=== PATIENT | female | born 1980 | race Caucasian/White ===

== ENCOUNTER 2020-02-24 | Emergency (ER) | payer BC ==
--- NOTE | 2020-02-24 00:38 | EDM.PDOC ---
ED HPI GENERAL MEDICAL PROBLEM - General Chief Complaint: Chest Pain Stated Complaint: CHEST PAIN L ARM NUMBNESS Time Seen by Provider: 02/24/20 00:16 Source of Information: Reports: Patient History Limitations: Reports: No Limitations - History of Present Illness INITIAL COMMENTS - FREE TEXT/NARRATIVE: 39-year-old female attends the ED due to development of a diffuse left-sided chest pressure discomfort with slight radiation into the left upper extremity to the elbow. This awoke her from sleep about an hour prior to coming to the ED. She stood up and walked around and sat for a while and the pressure did not go away. Of note she is appreciated some discomfort along the medial aspect of her left thigh off and on for the last 2 weeks. It has been more prominent over the last 2 to 3 days. Of note she has had a previous DVT in her left lower extremity in 2006 unprovoked. She denies any pleuritic chest pain cough or hemoptysis. She has no known cardiac problems. She has had a total abdominal hysterectomy. O2 sats drift as low as 93% on room air. She has no history of PE ED with her DVT in 2006. Onset: Sudden Onset Date: 02/23/20 Onset Time: 23:00 Duration: Minutes:, Constant Location: Reports: Chest (Scribes it is a very mild left central and precordial chest discomfort or pressure. She relates that) Quality: Reports: Ache ( pain is 1 out of 10.), Pressure Severity: Mild Improves with: Reports: None Worsens with: Reports: None, Other Context: Denies: Activity, Exercise, Lifting, Sick Contact, Trauma, Other Associated Symptoms: Reports: No Other Symptoms (It is not made worse by walking or deep breathing.). Denies: Confusion, Chest Pain, Cough, cough w sputum, Diaphoresis, Fever/Chills, Headaches, Loss of Appetite, Malaise, Nausea/Vomiting, Rash, Seizure, Shortness of Breath, Syncope, Weakness Treatments MRI ASSISTANT: Reports: Other (see below) (None.) Left Chest Pain Score (Numeric/FACES): 2 - Related Data Allergies Allergy/AdvReac Type Severity Reaction Status Date / Time No Known Allergies Allergy Verified 02/24/20 00:14 Home Meds: Home Meds Diclofenac Sodium [Voltaren] 75 mg PO BIDMEALS #16 tab.cr 02/24/20 [Rx] predniSONE [Prednisone] 20 mg PO BID #10 tablet 02/24/20 [Rx] Past Medical History Genitourinary History: Reports: UTI, Recurrent [employer] History: Reports: Neurological History: Reports: Headaches, Chronic Endocrine/Metabolic History: Reports: Other (See Below) Other Endocrine/Metabolic History: SLE Hematologic History: Reports: Other (See Below) (DVT right lower extremity in 2006 for no apparent reason.) Immunologic History: Reports: SLE - Infectious Disease History Infectious Disease History: Reports: Chicken Pox - Past Surgical History Female Surgical History: Reports: Hysterectomy Social & Family History - Tobacco Use Tobacco Use Status *Q: Never Tobacco User - Caffeine Use Caffeine Use: Reports: Coffee - Recreational Drug Use Recreational Drug Use: No - Living Situation & Occupation Living situation: Reports: Occupation: Employed ED ROS GENERAL - Review of Systems Review Of Systems: See Below Constitutional: Denies: Fever, Chills, Malaise, Weakness, Fatigue, Decreased Appetite, Weight Loss HEENT: Reports: No Symptoms Respiratory: Denies: Shortness of Breath, Wheezing, Pleuritic Chest Pain, Cough, Sputum, Hemoptysis, Other Cardiovascular: Reports: Chest Pain (Mild diffuse left-sided chest pressure discomfort this evening. Rates it as a 1 out of 10.). Denies: Blood Pressure Problem, Claudication, Edema, Lightheadedness, Orthopnea Endocrine: Reports: No Symptoms GI/Abdominal: Reports: No Symptoms : Reports: No Symptoms Musculoskeletal: Reports: No Symptoms Skin: Reports: No Symptoms Neurological: Reports: No Symptoms Psychiatric: Reports: No Symptoms Hematologic/Lymphatic: Reports: No Symptoms Immunologic: Reports: No Symptoms ED EXAM, GENERAL - Physical Exam Exam: See Below Exam Limited By: No Limitations General Appearance: Alert, WD/WN, No Apparent Distress, Other (Temperature is 36.1 with a heart rate of 62 and sinus respiratory is 15 BP 135/83 with a pulse ox measuring 93 to 95% on room air.) Eye Exam: Bilateral Eye: Normal Inspection, PERRL Throat/Mouth: Normal Inspection, Normal Lips, Normal Oropharynx Head: Atraumatic, Normocephalic Neck: Normal Inspection, Supple, Non-Tender, Full Range of Motion. No: Carotid Bruit, Lymphadenopathy (R), Thyromegaly Respiratory/Chest: No Respiratory Distress, Lungs Clear, Normal Breath Sounds, No Accessory Muscle Use, Other (.) Cardiovascular: Normal Peripheral Pulses, Regular Rate, Rhythm, No Edema, No Gallop, No Murmur ( He has no pain on palpation of the right ribs in the midclavicular line), No Rub Peripheral Pulses: 3+: Carotid (L), Carotid (R), Posterior Tibial (L), Posterior Tibial (R), Dorsalis Pedis (L), Dorsalis Pedis (R) GI/Abdominal: Normal Bowel Sounds, Soft, Non-Tender, No Organomegaly, No Mass, Pelvis Stable, Other (No healed surgical scar.) Back Exam: Normal Inspection, Full Range of Motion. No: CVA Tenderness (L), CVA Tenderness (R) Extremities: Normal Inspection, Normal Range of Motion, No Pedal Edema, Other (She has tenderness along the medial aspect of her left thigh in the distribution of the greater saphenous vein particularly proximally. No palpable deformities could be identified. She has some pain on palpation behind her left knee. The left lower extremity is not hot or grossly swollen. There is no dependent edema.) Neurological: Alert, Oriented, CN II-XII Intact, Normal Cognition Psychiatric: Normal Affect, Normal Mood Skin Exam: Warm, Dry, Intact, Normal Color, No Rash #1 Interpretation EKG Date: 02/24/20 Time: 00:08 Rhythm: NSR Rate (Beats/Min): 62 [place]: Normal P-Wave: Present (Borderline first-degree AV block minimally enlarged. Consider mild left atrial hypertrophy) QRS: Other (Mildly decreased voltage precordial leads. Tall R waves in lead I suggest possible mild left ventricular perjury.) ST-T: Normal QT: Normal EKG Interpretation Comments: Borderline ECG with no signs of ischemia. Course - Vital Signs Last Recorded V/S: Last Vital Signs Temp 36.1 C 02/24/20 00:09 Pulse 62 02/24/20 00:09 Resp 15 02/24/20 00:09 BP 135/83 02/24/20 00:09 Pulse Ox 95 02/24/20 00:09 - Orders/Labs/Meds Orders: Active Orders 24 hr Category Date Time Status Chest 1V Frontal [CR] Stat Exams 02/24/20 00:32 Taken VL Duplex Lwr Ext Veins Ltd Lt [US] Stat Exams 12/10/20 00:30 Taken TROPONIN I [CHEM] Stat Lab 02/24/20 04:12 Ordered Labs: Laboratory Tests 02/24/20 02/24/20 02/24/20 Range/Units 00:25 00:25 00:25 WBC 9.22 (3.98-10.04) K/mm3 RBC 4.88 (3.98-5.22) M/mm3 Hgb 14.1 (11.2-15.7) gm/dl Hct 42.4 (34.1-44.9) % MCV 86.9 (79.4-94.8) fl MCH 28.9 (25.6-32.2) pg MCHC 33.3 (32.2-35.5) g/dl RDW Std Deviation 40.6 (36.4-46.3) fL Plt Count 396 H (182-369) K/mm3 MPV 8.7 L (9.4-12.3) fl Neut % (Auto) 45.8 (34.0-71.1) % Lymph % (Auto) 41.0 (19.3-51.7) % [place] % (Auto) 9.7 (4.7-12.5) % Eos % (Auto) 2.9 (0.7-5.8) Baso % (Auto) 0.4 (0.1-1.2) % Neut # (Auto) 4.22 (1.56-6.13) K/mm3 Lymph # (Auto) 3.78 H (1.18-3.74) K/mm3 [place] # (Auto) 0.89 H (0.24-0.36) K/mm3 Eos # (Auto) 0.27 (0.04-0.36) K/mm3 Baso # (Auto) 0.04 (0.01-0.08) K/mm3 PT 10.3 (9.7-12.0) SECONDS INR 0.96 APTT 28.5 (21.7-31.4) SECONDS D-Dimer, Quantitative < 0.19 L (0.19-0.50) mg/L Sodium 139 (136-145) mEq/L Potassium 3.4 L (3.5-5.1) mEq/L Chloride 103 (98-107) mEq/L Carbon Dioxide 24 (21-32) mEq/L Anion Gap 15.4 H (5-15) BUN 17 (7-18) mg/dL Creatinine 1.0 (0.55-1.02) mg/dL Est Cr Clr Drug Dosing 58.55 mL/min Estimated GFR (MDRD) > 60 (>60) mL/min BUN/Creatinine Ratio 17.0 (14-18) Glucose 99 (74-106) mg/dL Calcium 9.0 (8.5-10.1) mg/dL Total Bilirubin 0.4 (0.2-1.0) mg/dL AST 14 L (15-37) U/L ALT 24 (14-59) U/L Alkaline Phosphatase 90 (46-116) U/L Lactate Dehydrogenase 181 (81-234) U/L C-Reactive Protein 0.4 (<1.0) mg/dL Total Protein 7.1 (6.4-8.2) g/dl Albumin 3.8 (3.4-5.0) g/dl Globulin 3.3 gm/dL Albumin/Globulin Ratio 1.2 (1-2) - Radiology Interpretation Free Text/Narrative:: 39-year-old female attends the ED awakening from sleep around 2300 hrs. with subjective mild pressure discomfort in her left anterior chest which radiated to her left upper extremity. She would not call it a pain but more of a mild pressure sensation. Initial ECG showed sinus rhythm at 62/min with no evidence of ischemic change. She complains of pain along the medial aspect of her left thigh particular in the distribution of the greater saphenous vein for the last 2 weeks. She has had a previous DVT in the left lower extremity. Lungs are clear on auscultation. O2 sats are 95 to 96% on room air. Concern is therefore for possible DVT left lower extremity with PE. Plan routine labs will be performed to include a D-dimer assay. Doppler ultrasound will be performed on the left lower extremity. - Re-Assessments/Exams Free Text/Narrative Re-Assessment/Exam: 02/24/20 01:45 Total white count is 9.22 with 45.8% neutrophils on the auto differential. Hemoglobin is normal at 14.1 with hematocrit of 42.4. Platelet count is 396,000. PT is 10.3 with an INR of 0.96. PTT is 28.5 and D-dimer is less than 0.19. Sodium 139 with potassium of 3.4 slightly low. Chloride is 103 with a bicarb of 24. Anion gap is 15.4. BUN is 17 with a creatinine of 1.0. GFR is greater than 60. Glucose is 99 with a calcium of 9.0. Total bilirubin is 0.4. Liver function is normal. C-reactive protein is 0.4. Total protein 7.1 with an albumin fraction of 3.8. Therefore the patient clinically does not have any evidence of DVT or PE. 02/24/20 02:25: Doppler ultrasound of her left lower extremity reveals no evidence of DVT. The common femoral, femoral, proximal profundofemoral and popliteal veins and visualized calf veins are patent without any evidence of thrombus. Normal Doppler waveforms. Normal compressibility and/or augmentation response identified. Left superficial veins are unremarkable with the saphenofemoral junction patent without any thrombus. This correlates with a negative D-dimer at 0.19. Departure - Departure Time of Disposition: 02:43 Disposition: Home, Self-Care 01 Reason for Transfer *Q: Other Condition: Fair Clinical Impression: Chest wall pain, Non-cardiac chest pain Prescriptions: predniSONE [Prednisone] 20 mg PO BID #10 tablet Diclofenac Sodium [Voltaren] 75 mg PO BIDMEALS #16 tab.cr Instructions: Chest Wall Pain, [id number] Referrals: Valerie Rosa [employer] WASHER [Primary Care Provider] - Forms: ED Department Discharge Additional Instructions: Evaluation in the emergency room tonight in regards to awakening from sleep with diffuse left-sided chest pressure discomfort rating into the left upper extremity. Examination revealed chest wall tenderness in the distribution of the second third fourth and fifth ribs in the midclavicular line. Lungs sounded clear otherwise and no other abnormalities were appreciated. ECG or heart tracing was normal chest x-ray is normal. Concerns arose for possible r ecurrence of DVT left lower extremity due to pain along the inner aspect of your left thigh in the distribution of the greater saphenous vein. Past history of DVT in that leg in 2006. Therefore Doppler ultrasound of the left lower extremity was carried out and was found to be negative for any signs of blood clots. Also D-dimer assay in your blood was also well below the normal value. Heart markers were normal as well with no signs of heart related illness. It appears that chest wall pain which is usually viral in origin is the cause of current discomfort in as you indicated has been bothering him off and on for the last 2 weeks. Suggest using Motrin 600 mg every 6 hours as needed to relieve pain and inflammation. If condition worsens then please fill prescriptions for Voltaren 75 mg twice daily for 8 days and prednisone 20 mg twice daily for 5 days to take away the inflammation in the left chest wall. Follow-up with personal care physician if any further problems occur. Sepsis Event Note (ED) - Evaluation Sepsis Screening Result: No Definite Risk - Focused Exam Vital Signs: Vital Signs Temp Pulse Resp BP Pulse Ox 02/24/20 00:09 36.1 C 62 15 135/83 95 - My Orders Last 24 Hours: My Active Orders 02/24/20 00:30 VL Duplex Lwr Ext Veins Ltd Lt [US] Stat 02/24/20 00:32 Chest 1V Frontal [CR] Stat 02/24/20 04:12 TROPONIN I [CHEM] Stat - Assessment/Plan Last 24 Hours: My Active Orders 02/24/20 00:30 VL Duplex Lwr Ext Veins Ltd Lt [US] Stat 02/24/20 00:32 Chest 1V Frontal [CR] Stat 02/24/20 04:12 TROPONIN I [CHEM] Stat
--- NOTE | 2020-02-25 08:50 | US ---
Left lower extremity deep venous ultrasound: Duplex and color Doppler evaluation was obtained of the left common femoral, proximal greater saphenous, superficial femoral, popliteal, posterior tibial and peroneal vein. Right common femoral vein was also evaluated. Findings: Normal phasic flow, augmentation or compression is seen. Impression: 1. No findings of deep venous thrombosis within the left lower extremity or within the right common femoral vein. Diagnostic code #1 I agree with preliminary report from [facility], finalized on 02/24/20, 3:15 AM HR CLERK
--- NOTE | 2020-02-25 08:50 | CR ---
Chest: Portable view of the chest was obtained. Comparison: Prior chest x-ray of 12/20/15. Heart size and mediastinum are normal. Lungs are clear with no acute parenchymal change. Bony structures are grossly intact. Minimal scoliosis is noted which is stable. Impression: 1. Nothing acute is seen on portable chest x-ray. Diagnostic code #1
== END 2020-02-24 02:56 | disposition home or self-care (01) ==
LOC: JD.ED
DX: R07.89 Other chest pain (principal); M32.9 Systemic lupus erythematosus, unspecified
CPT/HCPCS: 36415; 71045; 71045-26; 80053; 83615; 84484; 85025; 85379; 85610; 85730; 86140; 93005; 93010; 93971-26-LT; 93971-LT; 99284; 99285-25

== ENCOUNTER 2021-01-08 17:38 | Emergency (ER) | payer BC | END 2021-01-08 18:45 | disposition left against medical advice (07) | LOC: JD.ED 17:38 | DX: R20.0 Anesthesia of skin (principal); Z53.21 Procedure and treatment not carried out due to patient leaving prior to being seen by health care provider ==

== ENCOUNTER 2022-08-09 22:18 | Emergency (ER) | payer BC | END 2022-08-10 00:04 | disposition home or self-care (01) | LOC: JD.ED 22:18 | DX: R51.9 Headache, unspecified (principal); E66.9 Obesity, unspecified; Z68.34 Body mass index [BMI] 34.0-34.9, adult | CPT/HCPCS: 99284 ==

== ENCOUNTER 2023-05-11 07:07 | Emergency (ER) | payer BC, OTHER ==
[2023-05-11] MEDS ORDERED: Sodium Chloride 0.9% 10 ML Syringe FLUSH PRN (07:43)
[2023-05-11] MEDS: Aspirin 81 MG Tab.Chew PO ONE (08:02)
[2023-05-11 08:12] LABS: BASOPHILS ABSOLUTE AUTO 0.1 K/mm3 (0.0-0.2); BASOPHILS PERCENT AUTO 0.7 % (0.0-1.0); EOSINOPHILS ABSOLUTE AUTO 0.1 K/mm3 (0.0-0.4); EOSINOPHILS PERCENT AUTO 1.9 % (0.0-6.0); HEMATOCRIT 42.8 % (37.0-47.0); HEMOGLOBIN 14.5 gm/dl (12.0-16.0); IMMATURE GRAN ABSOLUTE AUTO 0.03 K/mm3 (0.00-0.05); IMMATURE GRAN PERCENT AUTO 0.4 % (0.0-0.4); LYMPHOCYTES ABSOLUTE AUTO 2.2 K/mm3 (1.0-4.8); LYMPHOCYTES PERCENT AUTO 31.3 % (24.0-44.0); MEAN CORPUSCULAR HEMOGLOBIN 29.4 pg (28.0-32.0); MEAN CORPUSCULAR HGB CONC 33.9 g/dl (32.0-36.0); MEAN CORPUSCULAR VOLUME 86.8 fl (83.0-99.0); MEAN PLATELET VOLUME 8.6 fl (9.4-12.3); MONOCYTES ABSOLUTE AUTO 0.6 K/mm3 (0.0-0.8); MONOCYTES PERCENT AUTO 8.3 % (0.0-8.0); NEUTROPHILS PERCENT AUTO 57.4 % (41.0-71.0); PLATELET COUNT,PLT 332 K/mm3 (150-400); RED BLOOD CELL COUNT 4.93 M/mm3 (4.10-5.30); WHITE BLOOD CELL COUNT,WBC 6.88 K/mm3 (3.9-11.3)
[2023-05-11 08:41] LABS: INR 0.96; PROTHROMBIN TIME 10.3 SECONDS (9.7-12.0)
[2023-05-11 08:46] LABS: D-DIMER QUANTITATIVE < 0.19 mg/L (0.19-0.50)
[2023-05-11 08:50] LABS: A/G RATIO 1.2 (1-2); ALANINE AMINOTRANSFERASE,ALT 20 U/L (14-59); ALBUMIN 3.9 g/dl (3.4-5.0); ALKALINE PHOSPHATASE 60 U/L (46-116); ANION GAP 13.1 (5-15); ASPARTATE AMNIOTRANSFERASE,AST 9 U/L (15-37); BLOOD UREA NITROGEN,BUN 13 mg/dL (7-18); BUN/CREATININE RATIO 14.4 (14-18); CARBON DIOXIDE,CO2 25 mEq/L (21-32); CHLORIDE,CL 105 mEq/L (98-107); CREATININE 0.9 mg/dL (0.55-1.02); EST CRCL DRUG DOSING (CG) 63.09 mL/min; ESTIMATED GFR 81 mL/min (>60); GLUCOSE RANDOM 102 mg/dL (70-99); MAGNESIUM 1.9 mg/dL (1.8-2.4); POTASSIUM,K 4.1 mEq/L (3.5-5.1); PROTEIN TOTAL,TP 7.2 g/dl (6.4-8.2); SODIUM,NA 139 mEq/L (136-145)
[2023-05-11 09:12] LABS: TROPONIN I HIGH SENSITIVITY < 4 pg/mL (<=51)
== END 2023-05-11 11:46 | disposition home or self-care (01) ==
LOC: JD.ED 07:07
DX: R07.9 Chest pain, unspecified (principal); E66.9 Obesity, unspecified; Z79.899 Other long term (current) drug therapy; Z90.710 Acquired absence of both cervix and uterus
CPT/HCPCS: 36415; 71045; 80053; 81025; 83735; 83880; 84484; 85025; 85379; 85610; 93005; 99285; A9270

== ENCOUNTER 2024-01-20 10:13 | Emergency (ER) | payer BC ==
[2024-01-20] MEDS ORDERED: Sodium Chloride 0.9% 10 ML Syringe FLUSH PRN (10:54)
[2024-01-20 11:50] LABS: BASOPHILS ABSOLUTE AUTO 0.1 K/mm3 (0.0-0.2); BASOPHILS PERCENT AUTO 0.6 % (0.0-1.0); EOSINOPHILS ABSOLUTE AUTO 0.1 K/mm3 (0.0-0.4); EOSINOPHILS PERCENT AUTO 0.8 % (0.0-6.0); HEMATOCRIT 41.3 % (37.0-47.0); HEMOGLOBIN 14.1 gm/dl (12.0-16.0); IMMATURE GRAN ABSOLUTE AUTO 0.03 K/mm3 (0.00-0.05); IMMATURE GRAN PERCENT AUTO 0.3 % (0.0-0.4); LYMPHOCYTES PERCENT AUTO 20.6 % (24.0-44.0); MEAN CORPUSCULAR HEMOGLOBIN 29.6 pg (28.0-32.0); MEAN CORPUSCULAR HGB CONC 34.1 g/dl (32.0-36.0); MEAN CORPUSCULAR VOLUME 86.8 fl (83.0-99.0); MEAN PLATELET VOLUME 8.5 fl (9.4-12.3); MONOCYTES ABSOLUTE AUTO 0.7 K/mm3 (0.0-0.8); MONOCYTES PERCENT AUTO 7.7 % (0.0-8.0); NEUTROPHILS ABSOLUTE AUTO 6.7 K/mm3 (1.8-7.7); PLATELET COUNT,PLT 367 K/mm3 (150-400); RED BLOOD CELL COUNT 4.76 M/mm3 (4.10-5.30); WHITE BLOOD CELL COUNT,WBC 9.57 K/mm3 (3.9-11.3)
[2024-01-20 12:21] LABS: A/G RATIO 1.4 (1-2); ALANINE AMINOTRANSFERASE,ALT 16 U/L (14-59); ALKALINE PHOSPHATASE 60 U/L (46-116); ASPARTATE AMNIOTRANSFERASE,AST 9 U/L (15-37); BILIRUBIN TOTAL 0.7 mg/dL (0.2-1.0); BLOOD UREA NITROGEN,BUN 10 mg/dL (7-18); BUN/CREATININE RATIO 12.5 (14-18); CALCIUM 9.2 mg/dL (8.5-10.1); CARBON DIOXIDE,CO2 25 mEq/L (21-32); CHLORIDE,CL 105 mEq/L (98-107); CREATININE 0.8 mg/dL (0.55-1.02); EST CRCL DRUG DOSING (CG) 70.24 mL/min; ESTIMATED GFR 93 mL/min (>60); GLUCOSE RANDOM 90 mg/dL (70-99); MAGNESIUM 2.1 mg/dL (1.8-2.4); PROTEIN TOTAL,TP 6.9 g/dl (6.4-8.2); SODIUM,NA 140 mEq/L (136-145)
[2024-01-20 12:36] LABS: TROPONIN I HIGH SENSITIVITY < 4 pg/mL (<=51)
[2024-01-20] MEDS: Ketorolac 30 MG/ML SDV IVPUSH ONE (15:25)
== END 2024-01-20 15:00 | disposition home or self-care (01) ==
LOC: JD.ED 10:13
DX: R55 Syncope and collapse (principal); R07.89 Other chest pain; R20.2 Paresthesia of skin; L93.0 Discoid lupus erythematosus; E66.9 Obesity, unspecified; Z68.33 Body mass index [BMI] 33.0-33.9, adult; Z90.710 Acquired absence of both cervix and uterus; Z79.84 Long term (current) use of oral hypoglycemic drugs
CPT/HCPCS: 36415; 70450; 70496; 70498; 70551; 71045; 80053; 80307; 83735; 84484; 84703; 85025; 85379; 93005; 96374; 99284; J1885

== ENCOUNTER 2024-04-28 14:42 | Emergency (ER) | payer BC ==
[2024-04-28 15:44] LABS: BASOPHILS ABSOLUTE AUTO 0.1 K/mm3 (0.0-0.2); BASOPHILS PERCENT AUTO 0.5 % (0.0-1.0); EOSINOPHILS ABSOLUTE AUTO 0.2 K/mm3 (0.0-0.4); EOSINOPHILS PERCENT AUTO 1.7 % (0.0-6.0); HEMATOCRIT 40.3 % (37.0-47.0); HEMOGLOBIN 13.6 gm/dl (12.0-16.0); IMMATURE GRAN ABSOLUTE AUTO 0.03 K/mm3 (0.00-0.05); IMMATURE GRAN PERCENT AUTO 0.3 % (0.0-0.4); LYMPHOCYTES ABSOLUTE AUTO 2.6 K/mm3 (1.0-4.8); LYMPHOCYTES PERCENT AUTO 28.1 % (24.0-44.0); MEAN CORPUSCULAR HEMOGLOBIN 29.5 pg (28.0-32.0); MEAN CORPUSCULAR HGB CONC 33.7 g/dl (32.0-36.0); MEAN CORPUSCULAR VOLUME 87.4 fl (83.0-99.0); MONOCYTES ABSOLUTE AUTO 0.8 K/mm3 (0.0-0.8); MONOCYTES PERCENT AUTO 8.4 % (0.0-8.0); NEUTROPHILS ABSOLUTE AUTO 5.6 K/mm3 (1.8-7.7); PLATELET COUNT,PLT 335 K/mm3 (150-400); RED BLOOD CELL COUNT 4.61 M/mm3 (4.10-5.30); WHITE BLOOD CELL COUNT,WBC 9.18 K/mm3 (3.9-11.3)
[2024-04-28 15:55] LABS: APPEARANCE,URINE CLEAR (Clear); BILIRUBIN,URINE NEGATIVE (Negative); COLOR,URINE LIGHT YELLOW (Yellow); GLUCOSE,URINE NEGATIVE (Negative); KETONES,URINE NEGATIVE (Negative); LEUKOCYTE ESTERASE,URINE NEGATIVE (Negative); NITRITE,URINE NEGATIVE (Negative); OCCULT BLOOD,URINE 1+ (Negative); PROTEIN,URINE NEGATIVE (Negative); UROBILINOGEN,URINE 0.2 (0.2-1.0)
[2024-04-28 15:59] LABS: A/G RATIO 1.4 (1-2); ALANINE AMINOTRANSFERASE,ALT 18 U/L (14-59); ALBUMIN 4.1 g/dl (3.4-5.0); ALKALINE PHOSPHATASE 57 U/L (46-116); ANION GAP 16.5 (5-15); ASPARTATE AMNIOTRANSFERASE,AST 11 U/L (15-37); BILIRUBIN TOTAL 0.7 mg/dL (0.2-1.0); BLOOD UREA NITROGEN,BUN 19 mg/dL (7-18); CALCIUM 9.1 mg/dL (8.5-10.1); CARBON DIOXIDE,CO2 24 mEq/L (21-32); CHLORIDE,CL 105 mEq/L (98-107); CREATINE KINASE,CK 95 U/L (26-192); EST CRCL DRUG DOSING (CG) 56.19 mL/min; ESTIMATED GFR 71 mL/min (>60); GLUCOSE RANDOM 109 mg/dL (70-99); LIPASE 57 U/L (16-77); POTASSIUM,K 3.5 mEq/L (3.5-5.1); SODIUM,NA 142 mEq/L (136-145)
[2024-04-28] MEDS: Lactated Ringers 1,000 ML IV ONE (16:00)
[2024-04-28] MEDS: Acetaminophen 325 MG Tab PO ONE (16:00)
[2024-04-28 16:01] LABS: TROPONIN I HIGH SENSITIVITY < 4 pg/mL (<=51)
[2024-04-28] MEDS: Ondansetron 4 MG/2 ML SDV IVPUSH ONE (16:01)
[2024-04-28 16:07] LABS: BARBITURATE SCREEN,URINE NEGATIVE (CUTOFF=200); BENZODIAZEPINES SCREEN,URINE NEGATIVE (CUTOFF=150); BUPRENORPHINE SCREEN,URINE NEGATIVE (CUTOFF=10); METHADONE SCREEN, URINE NEGATIVE (CUTOFF=200); METHAMPHETAMINES SCREEN, URINE NEGATIVE (CUTOFF=500); OXYCODONE SCREEN,URINE NEGATIVE (CUT0FF=100); THC SCREEN,URINE 20 NG/ML NEGATIVE (CUTOFF=50)
[2024-04-28 16:13] LABS: AMPHETAMINES SCREEN, URINE NEGATIVE (CUTOFF=500)
[2024-04-28 16:36] LABS: BACTERIA,URINE OCCASIONAL /hpf (FEW); MUCUS,URINE NOT SEEN /hpf (FEW); SQUAMOUS EPITHELIAL CELLS,UR 0-5 /hpf (0-5); WBC,URINE 0-5 /hpf (0-5)
== END 2024-04-28 17:52 | disposition home or self-care (01) ==
LOC: JD.ED 14:42
DX: B34.9 Viral infection, unspecified (principal); M79.621 Pain in right upper arm; M79.622 Pain in left upper arm; R20.2 Paresthesia of skin; R07.89 Other chest pain; Z90.710 Acquired absence of both cervix and uterus
CPT/HCPCS: 36415; 71045; 80053; 80306; 81001; 81025; 82550; 83690; 83735; 84484; 85025; 87428; 93005; 96360; 99285; A9270; J7120